=== PATIENT | female | born 1975 | race Caucasian/White ===

== ENCOUNTER 2018-08-08 10:27 | Inpatient (IN) | payer OTHER ==
[2018-08-08] MEDS: CEFAZOLIN 2 GM/50 ML (PMX) 50 ML IVPB (10:00)
[2018-08-08] MEDS: LACTATED RINGER'S 1,000 ML IV* (10:00)
[~2018-08-08 10:27] MED LIST: SUCCINYLCHOLINE CHLORIDE 100 MG/5 ML SYG IV
[2018-08-08] MEDS ORDERED: GELATIN SIZE 100 SPONGE (11:29)
[2018-08-08] MEDS: CEFAZOLIN 1 GM/50 ML (PMX) 50 ML IVPB ×2 (12:30→21:41)
[2018-08-08] MEDS ORDERED: HYDROmorphONE 0.5 MG/0.5 ML SYG IV (12:30)
[2018-08-08] MEDS ORDERED: MAGNESIUM HYDROXIDE 30ML CUP PO (12:30)
[2018-08-08] MEDS ORDERED: CEPASTAT LOZENGE MT (12:30)
[2018-08-08] MEDS ORDERED: CYCLOBENZAPRINE 10 MG TAB PO (12:30)
[2018-08-08] MEDS ORDERED: BISACODYL 10 MG SUPP PR (12:30)
[2018-08-08] MEDS ORDERED: NALOXONE (0.4 MG/ML) INJ IV (12:30)
[2018-08-08] MEDS ORDERED: ACETAMINOPHEN 325 MG TAB PO (12:30)
[2018-08-08] MEDS ORDERED: DIPHENHYDRAMINE 25 MG CAP PO (12:30)
[2018-08-08] MEDS: SURGIFOAM POWDER 1 GM KIT (12:32)
[2018-08-08] MEDS: BUPIVACAINE 0.5%/EPI (SDV) 30 ML INJ (12:32)
[2018-08-08] MEDS: THROMBIN (BOVINE) 5,000 UNIT VIAL TP (12:32)
[2018-08-08] MEDS: POLYMYXIN/BACITRACIN 1L IRRIG (12:32)
[2018-08-08] MEDS ORDERED: LIDOCAINE 1% (MDV) 20 ML INJ (12:37)
[2018-08-08] MEDS ORDERED: PROPOFOL 20 ML (12:37)
[2018-08-08] MEDS ORDERED: MIDAZOLAM 1 MG/ML 2 ML INJ (12:37)
[2018-08-08] MEDS ORDERED: ONDANSETRON 4 MG INJ (12:49)
[2018-08-08] MEDS ORDERED: DEXAMETHASONE 4 MG/ML 5 ML INJ (12:49)
[2018-08-08] MEDS ORDERED: CEFAZOLIN 1 GM INJ (12:49)
[2018-08-08] MEDS: GABAPENTIN 300 MG CAP PO ×2 (13:00→21:41)
[2018-08-08] MEDS ORDERED: ROCURONIUM 50 MG INJ (13:04)
[2018-08-08] MEDS ORDERED: SUGAMMADEX SODIUM 200 MG/2 ML VIAL IV (14:35)
[2018-08-08] MEDS ORDERED: HYDROmorphONE 1 MG/5 ML IV SYRINGE IV (15:01)
[2018-08-08] MEDS: HYDROmorphONE 1 MG/5 ML IV SYRINGE IV ×6 (15:05→16:15)
[2018-08-08] MEDS: HYDROmorphONE 0.2 MG/ML PCA IV (15:17)
[2018-08-08] MEDS ORDERED: METOCLOPRAMIDE 10 MG INJ IV (15:30)
[2018-08-08] MEDS: ONDANSETRON 4 MG INJ IV ×2 (15:38→15:56)
[2018-08-08] MEDS: D5W-0.45 NACL + KCL 20 MEQ 1,000 ML IV ×2 (18:59→22:03)
[2018-08-08] MEDS: DOCUSATE SODIUM 100 MG CAP PO (21:41)
[2018-08-09] MEDS: ONDANSETRON 4 MG INJ IV ×2 (00:37→05:59)
[2018-08-09] MEDS: CEFAZOLIN 1 GM/50 ML (PMX) 50 ML IVPB ×2 (04:48→12:51)
[2018-08-09 05:18] LABS: ADD MAN DIFF? NO
[2018-08-09 05:19] LABS: WHITE BLOOD COUNT 17.9 10^3/ul (4.8-10.8)
[2018-08-09 05:19] LABS: BASOPHILS % 0.1 % (0.0-2.0); HEMATOCRIT 33.7 % (37.0-47.0); HEMOGLOBIN 11.2 g/dl (12.0-16.0); LYMPHOCYTES # 1.2 10^3/ul (0.8-2.9); LYMPHOCYTES % 6.6 % (15.0-51.0); MEAN CORPUSCULAR HEMOGLOBIN 28.3 pg (29.0-33.0); MEAN CORPUSCULAR HGB CONC 33.2 g/dl (32.0-37.0); MEAN CORPUSCULAR VOLUME 85.1 fl (82.0-101.0); MONOCYTE # 0.6 10^3/ul (0.3-0.9); MONOCYTES % 3.2 % (0.0-11.0); NEUTROPHIL # 16.1 10^3/ul (1.6-7.5); NEUTROPHILS % 89.6 % (39.0-77.0); PLATELET COUNT 358 10^3/UL (140-415); RED BLOOD COUNT 3.96 10^6/ul (4.20-5.40); RED CELL DISTRIBUTION WIDTH 14.1 % (11.5-14.5)
[2018-08-09 05:35] LABS: IRON 38 ug/dl (35-150)
[2018-08-09 05:44] LABS: % IRON SATURATION 11 % SAT (22-52); TOTAL IRON BINDING CAPACITY 355 ug/dl (241-421)
[2018-08-09 05:48] LABS: ANION GAP 12 (5-13); BLOOD UREA NITROGEN 5 mg/dl (7-20); CARBON DIOXIDE 24 mmol/L (21-31); CHLORIDE 103 mmol/L (97-110); CREATININE 0.35 mg/dl (0.44-1.00); Estimated GFR > 60 mL/min (>60); GLUCOSE 165 mg/dl (70-220); POTASSIUM 4.3 mmol/L (3.5-5.1); SODIUM 139 mmol/L (135-144)
[2018-08-09] MEDS: METOCLOPRAMIDE 10 MG INJ IV ×4 (09:18→23:47)
[2018-08-09] MEDS: D5W-0.45 NACL + KCL 20 MEQ 1,000 ML IV ×2 (09:19→18:03)
[2018-08-09] MEDS: DOCUSATE SODIUM 100 MG CAP PO ×2 (09:21→20:37)
[2018-08-09] MEDS: HYDROCODONE/APAP (10/325) TAB PO ×3 (09:21→20:37)
[2018-08-09] MEDS: GABAPENTIN 300 MG CAP PO ×3 (09:21→20:37)
[2018-08-09] MEDS ORDERED: HYDROCODONE/APAP (10/325) TAB PO (09:30)
[2018-08-09 10:11] LABS: FERRITIN 14.5 ng/ml (6.2-137.0)
[2018-08-09 10:34] LABS: ADD UMIC NO; UR ASCORBIC ACID NEGATIVE (NEGATIVE); UR BILIRUBIN (Dip) NEGATIVE (NEGATIVE); UR BLOOD (Dip) NEGATIVE (NEGATIVE); UR CLARITY CLEAR (CLEAR); UR COLOR STRAW (YELLOW); UR GLUCOSE (Dip) 1+ mg/dL (NEGATIVE); UR KETONES (Dip) NEGATIVE (NEGATIVE); UR LEUKOCYTE ESTERASE (Dip) NEGATIVE Leu/ul (NEGATIVE); UR NITRITE (Dip) NEGATIVE (NEGATIVE); UR SPECIFIC GRAVITY (Dip) 1.012 (1.003-1.030); UR TOTAL PROTEIN (Dip) NEGATIVE (NEGATIVE); UR UROBILINOGEN (Dip) NEGATIVE (NEGATIVE)
[2018-08-09] MEDS: SOD FERRIC GLUC COMPLX 125 MG in SOD CHLORIDE 0.9% 100 ML IVPB (14:24)
[2018-08-09] MEDS: PANTOPRAZOLE 40 MG INJ IV (18:21)
[2018-08-10] MEDS: D5W-0.45 NACL + KCL 20 MEQ 1,000 ML IV (04:03)
[2018-08-10 05:04] LABS: ADD MAN DIFF? NO
[2018-08-10 05:09] LABS: WHITE BLOOD COUNT 16.7 10^3/ul (4.8-10.8)
[2018-08-10 05:09] LABS: BASOPHIL # 0.1 10^3/ul (0.0-0.1); BASOPHILS % 0.4 % (0.0-2.0); EOSINOPHILS % 0.1 % (0.0-7.0); HEMATOCRIT 31.1 % (37.0-47.0); HEMOGLOBIN 10.3 g/dl (12.0-16.0); LYMPHOCYTES # 2.8 10^3/ul (0.8-2.9); LYMPHOCYTES % 16.6 % (15.0-51.0); MEAN CORPUSCULAR HEMOGLOBIN 28.1 pg (29.0-33.0); MEAN CORPUSCULAR HGB CONC 33.1 g/dl (32.0-37.0); MEAN CORPUSCULAR VOLUME 84.7 fl (82.0-101.0); MEAN PLATELET VOLUME 11.1 fl (7.4-10.4); MONOCYTE # 0.9 10^3/ul (0.3-0.9); MONOCYTES % 5.4 % (0.0-11.0); NEUTROPHIL # 12.8 10^3/ul (1.6-7.5); PLATELET COUNT 336 10^3/UL (140-415); RED BLOOD COUNT 3.67 10^6/ul (4.20-5.40); RED CELL DISTRIBUTION WIDTH 14.5 % (11.5-14.5)
[2018-08-10] MEDS: METOCLOPRAMIDE 10 MG INJ IV (05:45)
[2018-08-10] MEDS: PANTOPRAZOLE 40 MG INJ IV (05:45)
[2018-08-10 05:51] LABS: ANION GAP 7 (5-13); BLOOD UREA NITROGEN 9 mg/dl (7-20); CALCIUM 8.5 mg/dl (8.4-10.2); CARBON DIOXIDE 28 mmol/L (21-31); CHLORIDE 105 mmol/L (97-110); CREATININE 0.45 mg/dl (0.44-1.00); Estimated GFR > 60 mL/min (>60); GLUCOSE 99 mg/dl (70-220); MAGNESIUM 2.2 mg/dl (1.7-2.5); PHOSPHORUS 2.4 mg/dl (2.5-4.9); POTASSIUM 3.9 mmol/L (3.5-5.1); SODIUM 140 mmol/L (135-144)
[2018-08-10] MEDS: GABAPENTIN 300 MG CAP PO (09:46)
[2018-08-10] MEDS: DOCUSATE SODIUM 100 MG CAP PO (09:46)
[2018-08-10] MEDS: HYDROCODONE/APAP (10/325) TAB PO (09:48)
[2018-08-10] MEDS: POTASSIUM PHOSPHATE 15 MM in SOD CHLORIDE 0.9% 250 ML IVPB (09:49)
[2018-08-11] MEDS ORDERED: PANTOPRAZOLE (EC) 40 MG TAB PO (06:00)
== END 2018-08-10 13:23 | disposition home or self-care (01) | DRG 518 ==
LOC: REC 10:27 → MS1 16:48
PROC: 0RR30JZ Replacement of Cervical Vertebral Disc with Synthetic Substitute, Open Approach (ICD-10-PCS; principal; 2018-08-08 12:00)
PROC: 4A11X4G Monitoring of Peripheral Nervous Electrical Activity, Intraoperative, External Approach (ICD-10-PCS; 2018-08-08 12:00)
DX: M48.02 Spinal stenosis, cervical region (principal); M50.122 Cervical disc disorder at C5-C6 level with radiculopathy; K21.9 Gastro-esophageal reflux disease without esophagitis; R11.2 Nausea with vomiting, unspecified; T41.295A Adverse effect of other general anesthetics, initial encounter
CPT/HCPCS: 72050; 80048; 81003; 82728; 83540; 83735; 84100; 85025; 87086; 88304; 97116; 97161; 97530